=== PATIENT | female | born 1950 | race Caucasian/White ===

== ENCOUNTER 2024-08-27 16:24 | Emergency (ER) | payer MEDICARE, OTHER ==
[2024-08-27] MEDS: Potassium Chloride 10% 20 MEQ/15 ML Soln 15 ML UD Cup PO STA (18:02)
[2024-08-27 18:21] LABS: HEMATOCRIT 39.5 % (37.0-47.0); HEMOGLOBIN 13.3 g/dL (12.0-16.0); MEAN CORPUSCULAR HGB CONC 33.7 g/dL (33.0-35.0); MEAN CORPUSCULAR VOLUME 80.1 fL (80-100); PLATELET COUNT,PLT 197 10^3/uL (150-450); RED BLOOD CELL COUNT 4.93 10^6/uL (4.2-5.4); WHITE BLOOD CELL COUNT,WBC 27.3 10^3/uL (5.0-10.0)
[2024-08-27 18:36] LABS: BASOPHILS PERCENT AUTO 0.3 % (0.0-1.0); EOSINOPHILS PERCENT AUTO 0.1 % (1.0-3.0); LYMPHOCYTES PERCENT AUTO 9.6 % (20.5-50.1); MONOCYTES PERCENT AUTO 7.1 % (2-8); NEUTROPHILS PERCENT AUTO 82.9 % (42.2-75.2)
[2024-08-27 18:47] LABS: BILIRUBIN TOTAL 0.3 mg/dL (0.2-1.0); BUN/CREATININE RATIO 13.7 (No establ ref range); CALCIUM 9.1 mg/dL (8.5-10.1); CREATININE 1.17 mg/dL (0.55-1.02); EST CRCL DRUG DOSING (CG) 34.9 mL/min; POTASSIUM,K 2.9 mmol/L (3.5-5.1); PROTEIN TOTAL,TP 7.1 g/dL (6.4-8.2)
[2024-08-27 19:03] LABS: ANION GAP 13.9 mEq/L (7-13)
[2024-08-27 19:04] LABS: A/G RATIO 0.73
[2024-08-27 19:37] LABS: BAND PERCENT MAN 3 %; LYMPHOCYTES % ATYPICAL MANUAL 2 %; LYMPHOCYTES PERCENT MAN 13 % (20-50); MONOCYTES PERCENT MAN 8 % (2-8); SEG NEUTROPHILS PERCENT MAN 74 % (42-75)
[2024-08-27] MEDS: Potassium Chloride 10 MEQ Tab.ER PO ONE (20:30)
[2024-08-27] MEDS: Sodium Chloride 0.9% 500 ML IV ONE (20:30)
[2024-08-27] MEDS: Magnesium Sulf/Wat 2 GM/50 mL 2 GM in Premix Bag 1 BAG IV ONE (22:27)
== END 2024-08-28 01:00 | disposition home or self-care (01) ==
LOC: DL.ED 16:24
DX: E87.6 Hypokalemia (principal); E83.42 Hypomagnesemia; D72.825 Bandemia; I10 Essential (primary) hypertension; Z87.891 Personal history of nicotine dependence; Z88.0 Allergy status to penicillin
CPT/HCPCS: 36415; 80053; 83735; 84132; 85025; 85651; 93005; 96361; 96365; 99285-25; A9270-GY; J1642; J3475; J7040

== ENCOUNTER 2024-09-09 18:56 | Emergency (ER) | payer MEDICARE, OTHER ==
[2024-09-09 19:50] LABS: HEMATOCRIT 34.1 % (37.0-47.0); HEMOGLOBIN 11.9 g/dL (12.0-16.0); MEAN CORPUSCULAR HGB CONC 34.9 g/dL (33.0-35.0); MEAN CORPUSCULAR VOLUME 80.2 fL (80-100); PLATELET COUNT,PLT 143 10^3/uL (150-450); RED BLOOD CELL COUNT 4.25 10^6/uL (4.2-5.4); WHITE BLOOD CELL COUNT,WBC 1.6 10^3/uL (5.0-10.0)
[2024-09-09 19:52] LABS: EOSINOPHILS PERCENT AUTO 1.3 % (1.0-3.0); LYMPHOCYTES PERCENT AUTO 38.6 % (20.5-50.1); MONOCYTES PERCENT AUTO 46.2 % (2-8)
[2024-09-09 19:56] LABS: BASOPHILS PERCENT AUTO 1.9 % (0.0-1.0)
[2024-09-09 20:06] LABS: ALBUMIN 2.9 g/dL (3.4-5.0); BILIRUBIN TOTAL 0.8 mg/dL (0.2-1.0); BUN/CREATININE RATIO 20.3 (No establ ref range); C-REACTIVE PROTEIN 8.96 ng/dL (<=0.50); CALCIUM 9.4 mg/dL (8.5-10.1); CREATININE 2.17 mg/dL (0.55-1.02); EST CRCL DRUG DOSING (CG) 19.64 mL/min; MAGNESIUM 1.6 mg/dL (1.8-2.4); PROTEIN TOTAL,TP 6.6 g/dL (6.4-8.2)
[2024-09-09 20:09] LABS: ANION GAP 13.4 mEq/L (7-13); POTASSIUM,K 3.4 mmol/L (3.5-5.1)
[2024-09-09 20:10] LABS: A/G RATIO 0.78; LACTIC ACID 2.5 mmol/L (0.4-2.0)
[2024-09-09 20:20] LABS: BASOPHILS PERCENT MAN 2; LYMPHOCYTES PERCENT MAN 18 % (20-50); MONOCYTES PERCENT MAN 21 % (2-8); SEG NEUTROPHILS PERCENT MAN 9 % (42-75)
[2024-09-09] MEDS: Sodium Chloride 0.9% 1,000 ML IV SCH (20:27)
[2024-09-09 21:11] LABS: APPEARANCE,URINE CLEAR (CLEAR); BILIRUBIN,URINE NEGATIVE (NEGATIVE); COLOR,URINE YELLOW (YELLOW); GLUCOSE,URINE NEGATIVE (NEGATIVE); KETONES,URINE NEGATIVE (NEGATIVE); LEUKOCYTE ESTERASE,URINE NEGATIVE (NEGATIVE); NITRITE,URINE NEGATIVE (NEGATIVE); OCCULT BLOOD,URINE TRACE-LYSED (NEGATIVE); PH,URINE 5.5 (5.0-9.0); PROTEIN,URINE NEGATIVE (NEGATIVE); UROBILINOGEN,URINE 0.2 mg/dL (0.2-1.0)
[2024-09-09 21:26] LABS: AMORPHOUS SEDIMENT,URINE FEW /HPF (NOT SEEN); BACTERIA,URINE FEW /HPF (0-FEW/HPF); EPITHELIAL CELLS,URINE FEW /HPF (NOT SEEN); MUCUS,URINE FEW /LPF (NOT SEEN); RBC,URINE 0-5 /HPF (0-5); WBC,URINE 0-5 /HPF (0-5/HPF)
[2024-09-09] MEDS: Potassium Chloride 10 MEQ Tab.ER PO ONE (21:49)
[2024-09-09] MEDS: Magnesium Sulfat/D5W 1GM/100ML 1 GM in Premix Bag 1 BAG IV ONE (21:50)
[2024-09-09] MEDS: Levofloxacin 500 MG Tab PO ONE (22:51)
== END 2024-09-09 23:05 | disposition home or self-care (01) ==
LOC: DL.ED 18:56
DX: D70.9 Neutropenia, unspecified (principal); I10 Essential (primary) hypertension; Z88.0 Allergy status to penicillin
CPT/HCPCS: 36415; 71045; 80053; 81001; 83605; 83735; 84145; 85025; 86140; 87040; 87428-QW; 96361; 96365; 99284; 99284-25; A9270-GY; J1642; J3475; J7030

== ENCOUNTER 2024-09-10 13:41 | Emergency (ER) | payer MEDICARE, OTHER ==
[2024-09-10] MEDS ORDERED: Sodium Chloride 0.9% 10 ML Syringe FLUSH PRN (14:41)
[2024-09-10] MEDS: Lactated Ringers 1,000 ML IV ONE (15:15)
== END 2024-09-10 16:20 | disposition home or self-care (01) ==
LOC: DL.ED 13:41
DX: N17.9 Acute kidney failure, unspecified (principal); I10 Essential (primary) hypertension; Z88.0 Allergy status to penicillin
CPT/HCPCS: 96360; 99283; J7120; 99284